=== PATIENT | female | born 1970 ===

== ENCOUNTER 2017-04-23 08:26 | Emergency (ER) | payer OTHER ==
[2017-04-23 08:36] VITALS: BMI 25.8
[2017-04-23 08:59] VITALS: RESP 16
--- NOTE | 2017-04-23 11:21 | ED PDOC ---
HPI: CCC, URI, Sore Throat Time Seen by Provider: 04/23/17 08:36 Chief Complaint (Nursing): ENT Problem Chief Complaint (Provider): ENT Problem History Per: Patient History/Exam Limitations: no limitations Onset/Duration Of Symptoms: Days (x2) Current Symptoms Are (Timing): Still Present Associated Symptoms: Fever, Chills, Sore Throat, Other (body aches). denies: Cough, Nausea, Vomiting, Diarrhea Ear Symptoms: Left: Ear Pain Additional Complaint(s): Sita Bright is a 47 year old female, with no significant past medical history, who presents to the emergency department complaining of fever, chills, left ear pain, sore throat, and body aches onset for x2 days. Patient took ibuprofen last night with minimal relief. She denies any cough, abdominal pain, nausea, vomit, diarrhea or shortness of breath. No further medical complaints. PMD: None provided. Past Medical History Reviewed: Historical Data, Nursing Documentation, Vital Signs Vital Signs: Last Vital Signs Temp 98.4 F 04/23/17 11:47 Pulse 70 04/23/17 11:47 Resp 16 04/23/17 11:47 BP 99/76 L 04/23/17 11:47 Pulse Ox 98 04/23/17 11:47 - Medical History PMH: No Chronic Diseases - Surgical History Surgical History: Cholecystectomy - Family History Family History: States: Unknown Family Hx - Social History Current smoker - smoking cessation education provided: No Alcohol: None Drugs: Denies - Immunization History Hx Tetanus Toxoid Vaccination: No Hx Influenza Vaccination: No Hx Pneumococcal Vaccination: No - Home Medications Home Medications: Ambulatory Orders Medication Instructions Recorded Polymyxin/Trimethoprim Sulfate 1 drop LEFTEYE Q3 #1 bottle 12/11/13 [Polytrim Ophth Soln] Erythromycin 0.5% [Erythromycin] 1 applic RIGHTEYE Q6 #1 tube 07/09/16 Ibuprofen [Motrin] 600 mg PO Q6H PRN #20 tab 04/23/17 Oseltamivir Phosphate [Tamiflu] 75 mg PO BID #9 capsule 04/23/17 - Allergies Allergies/Adverse Reactions: Allergies Allergy/AdvReac Type Severity Reaction Status Date / Time No Known Allergies Allergy Verified 07/09/16 19:01 Review of Systems ROS Statement: Except As Marked, All Systems Reviewed And Found Negative Constitutional: Positive for: Fever, Chills, Other (body aches) ENT: Positive for: Ear Pain (left ), Throat Pain Respiratory: Negative for: Cough, Shortness of Breath Gastrointestinal: Negative for: Nausea, Vomiting, Abdominal Pain, Diarrhea Physical Exam - Reviewed Nursing Documentation Reviewed: Yes Vital Signs Reviewed: Yes - Physical Exam Appears: Positive for: Non-toxic, No Acute Distress Head Exam: Positive for: ATRAUMATIC, NORMAL INSPECTION, NORMOCEPHALIC Skin: Positive for: Normal Color, Warm, Dry Eye Exam: Positive for: Normal appearance, EOMI, PERRL ENT: Positive for: Pharynx Is (erythematous ), Other (uvula midline. No drooling ). Negative for: Tonsillar Exudate Neck: Positive for: Painless ROM, Supple Cardiovascular/Chest: Positive for: Tachycardia (w/ regular rhythm) Respiratory: Positive for: Normal Breath Sounds (clear b/l). Negative for: Respiratory Distress Gastrointestinal/Abdominal: Positive for: Normal Exam, Soft. Negative for: Tenderness, Guarding, Rebound Back: Positive for: Normal Inspection. Negative for: L CVA Tenderness, R CVA Tenderness, Vertebral Tenderness Extremity: Positive for: Normal ROM. Negative for: Tenderness, Deformity, Swelling Neurologic/Psych: Positive for: Alert, Oriented - ECG O2 Sat by Pulse Oximetry: 95 (RA) Pulse Ox Interpretation: Normal Medical Decision Making Medical Decision Making: Initial Impression: URI Initial Plan: --Urine --Motrin tab 600 mg PO --Tylenol 325mg tab 650 mg PO --Throat culture --Rapid Strep Group A Antigen --Reevaluation Scribe Attestation: Documented by Alfonso Beckford, acting as a scribe for Bertha Jansen MD Provider Scribe Attestation: All medical record entries made by the Scribe were at my direction and personally dictated by me. I have reviewed the chart and agree that the record accurately reflects my personal performance of the history, physical exam, medical decision making, and the department course for this patient. I have also personally directed, reviewed, and agree with the discharge instructions and disposition. Disposition - Clinical Impression Clinical Impression: Flu-like symptoms - Disposition Referrals: [facility] [Outside] Disposition: Routine/Home Disposition Time: 12:02 Condition: STABLE Prescriptions: Ibuprofen [Motrin] 600 mg PO Q6H PRN #20 tab PRN Reason: Pain, Moderate (4-7) Oseltamivir Phosphate [Tamiflu] 75 mg PO BID #9 capsule Instructions: Influenza (ED) Forms: [facility] (Austrian) Print Language: BELARUSIAN
[2017-04-23 11:52] VITALS: BP 99/76; PULSE 70; TEMP 98.4
[2017-04-29 23:40] VITALS: O2SAT 95
== END 2017-04-23 12:35 | disposition home or self-care (01) ==
LOC: H.ER 08:26
DX: J11.1 Influenza due to unidentified influenza virus with other respiratory manifestations (principal)